=== PATIENT | female | born 1995 | race Hispanic/Latino ===

== ENCOUNTER 2020-02-04 19:13 | Emergency (ER) | payer MEDICARE, OTHER ==
[~2020-02-04] VITALS: Ht 160 cm; Wt 98.9 kg
--- OUTSIDE RECORDS SUMMARY | 2020-02-04 19:16 | XMS REPORT ---
Author Author [facility] Address Unknown Phone Unavailable Care Team Providers Care Assistant Mechanic Name Role Phone Unavailable Unavailable Payers Payer Name Policy Type Policy Number Effective Date Expiration Date Problems This patient has no known problems. Allergies, Adverse Reactions, Alerts Allergy Name Allergy Type Status Severity Reaction(s) Onset Date Inactive Date Treating Clinician Comments No Known Allergies DA Active U 2017-01-03 00:00:00 Medications This patient has no known medications. Results Test Description Test Time Test Comments Text Results Atomic Results Result Comments - DUP AB/PEL/SC COMP 2019-01-25 13:42:00 Name: JIMBO HANLEY [facility] : 1995 Age/S: 23 / F [address] [facility] Unit #: [id number] Loc: [place] [address] Phys: Luisana Weaver DO Acct: [id number] Dis Date: Status: REG ER PHONE #: [phone] Exam Date: 01/25/2019 1227 FAX #: [phone] Reason: R/O TORSION EXAMS: CPT CODE: [id number] DUP AB/PEL/SC COMP 80556 EXAM: Pelvic and transvaginal ultrasound and duplex sonography; INFORMATION: Pelvic pain, rule out ovarian torsion; TECHNIQUE AND FINDINGS: Transabdominal and transvaginal grayscale imaging was combined with color Doppler sonography and spectral analysis. The uterus is of normal size and shape; it measures 8.6 x 2.9 x 3.2 cm. Thin endometrial stripe, measuring 5 mm in thickness. No fluid collection within the endometrial canal. Both ovaries of normal size and shape and with normal flow pattern on Doppler exam. The right ovary measures 3.6 x 1.9 x 2.2 cm. The left ovary measures 3.2 x 2.6 x 2.3 cm. No free fluid within the cul-de-sac. IMPRESSION: Normal pelvic ultrasound; no evidence of ovarian torsion. at 1342 Reported and signed by: Devang Squires M.D. CC: Luisana Weaver DO; Johana Pulido M.D. Technologist: JACKSON PLATT),[facility] Date/Time: 01/25/2019 (134) Akin Orig Print D/T: S: 01/25/2019 (6193) Probe: PAGE 1 Signed Report - US TRANSVAGINAL NON OB 2019-01-25 13:42:00 Name: JIMBO HANLEY [facility] : 1995 Age/S: 23 / F [address] [facility] Unit #: [id number] Loc: [place] [address] Phys: Luisana Weaver DO Acct: [id number] Dis Date: Status: REG ER PHONE #: [phone] Exam Date: 01/25/2019 1227 FAX #: [phone] Reason: R/O TORSION EXAMS: CPT CODE: [id number] [place] [address] EXAM: Pelvic and transvaginal ultrasound and duplex sonography; INFORMATION: Pelvic pain, rule out ovarian torsion; TECHNIQUE AND FINDINGS: Transabdominal and transvaginal grayscale imaging was combined with color Doppler sonography and spectral analysis. The uterus is of normal size and shape; it measures 8.6 x 2.9 x 3.2 cm. Thin endometrial stripe, measuring 5 mm in thickness. No fluid collection within the endometrial canal. Both ovaries of normal size and shape and with normal flow pattern on Doppler exam. The right ovary measures 3.6 x 1.9 x 2.2 cm. The left ovary measures 3.2 x 2.6 x 2.3 cm. No free fluid within the cul-de-sac. IMPRESSION: Normal pelvic ultrasound; no evidence of ovarian torsion. at 1342 Reported and signed by: Devang Squires M.D. CC: Luisana Weaver DO; Johana Pulido M.D. Technologist: JACKSON PLATT(Leopoldo),RDMS [facility] Date/Time: 01/25/2019 (1342) [email or web address] Orig Print D/T: S: 01/25/2019 (1345) Probe: [id number] PAGE 1 Signed Report - US PELVIS COMPLETE 2019-01-25 13:42:00 Name: DAYANFUNMILAYO [facility] : 1995 Age/S: 23 / F [address] [facility] Unit #: [id number] Loc: [place] [address] Phys: Luisana Weaver DO Acct: [id number] Dis Date: Status: REG ER PHONE #: [phone] Exam Date: 01/25/2019 1227 FAX #: [phone] Reason: abd pain, r/o torsion EXAMS: CPT CODE: [id number] US PELVIS COMPLETE 04170 EXAM: Pelvic and transvaginal ultrasound and duplex sonography; INFORMATION: Pelvic pain, rule out ovarian torsion; TECHNIQUE AND FINDINGS: Transabdominal and transvaginal grayscale imaging was combined with color Doppler sonography and spectral analysis. The uterus is of normal size and shape; it measures 8.6 x 2.9 x 3.2 cm. Thin endometrial stripe, measuring 5 mm in thickness. No fluid collection within the endometrial canal. Both ovaries of normal size and shape and with normal flow pattern on Doppler exam. The right ovary measures 3.6 x 1.9 x 2.2 cm. The left ovary measures 3.2 x 2.6 x 2.3 cm. No free fluid within the cul-de-sac. IMPRESSION: Normal pelvic ultrasound; no evidence of ovarian torsion. at 1342 Reported and signed by: Devang Squires M.D. CC: Luisana Weaver DO; Johana Pulido M.D. Technologist: JACKSON PLATT RT(R),CHERRI [facility]nm[facility] Date/Time: 01/25/2019 (0722) JamalGRW Orig Print D/T: S: 01/25/2019 (2505) Probe: PAGE 1 Signed Report - CT MAXIFAC W/O CNT 2019-01-25 10:36:00 Name: JIMBO HANLEY [facility] : 1995 Age/S: 23 / F [address] Unit #: [id number] Loc: [place] [address] Phys: Luisana Weaver DO Acct: [id number] Dis Date: Status: REG ER PHONE #: [phone] Exam Date: 01/25/2019939 FAX #: [phone] Reason: head injury, r/o nasal bone fracture EXAMS: CPT CODE: [id number] CT MAXIFAC [place] [address] EXAM: CT of the maxillofacial structures without contrast; INFORMATION: Head injury, rule out nasal bone fracture; TECHNIQUE AND FINDINGS: CT dose reduction protocol; 2.5 mm axial scans; sagittal and coronal reconstructions. Nasal bones are intact; no evidence of fracture; Osseous contours of the orbits and paranasal sinuses are intact; zygomatic arches and mandible are intact. Minimal mucosal swelling in the right maxillary sinus; the remainder of the sinuses and mastoid air cells are well aerated. Intra and extraconal orbital compartments are intact. IMPRESSION: 1. No evidence of acute osseous trauma. 2. Minimal right maxillary sinusitis. at 1036 Reported and signed by: Devang Squires M.D. CC: Luisana Weaver DO; Johana Pulido M.D. Technologist:DOT HOOPER RT(R) CTDI: DLP: Trnscb Date/Time: 01/25/2019 (1036) JamalGRBassam Orig Print D/T: S: 01/25/2019 (1039) CTDI: DLP: PAGE 1 Signed Report BASIC METABOLIC PANEL 2019-01-25 09:50:00 SODIUM (test code=NA) 140 mmol/L 136-145 POTASSIUM (test code=K) 4.0 mmol/L 3.5-5.1 CHLORIDE (test code=CL) 111.0 mmol/L 98-107 CARBON DIOXIDE (test code=CO2) 23.0 mmol/L 21-32 ANION GAP (test code=GAP) 10.0 10-20 GLUCOSE (test code=GLU) 99 mg/dL 74-106 BLOOD UREA NITROGEN (test code=BUN) 13 mg/dL 7-18 GLOMERULAR FILTRATION RATE (test code=GFR) > 60 mL/min >=60 Estimated GFR by using Modified MDRD formula.Chronic kidney disease is defined as either kidney damageor GFR <60 mL/min/1.73 m2 for >3 months. CREATININE (test code=CREAT) 0.60 mg/dL 0.55-1.02 Note change in reference range due to change in reagent. BUN/CREATININE RATIO (test code=BUN/CREA) 20.1 10-20 CALCIUM (test code=CA) 8.9 mg/dL 8.5-10.1 HCG SERUM [id number] 09:50:00* Test Item Value Reference Range Comments HCG SERUM QUAL (test code=HCGQL) NEGATIVE NEGATIVE This HCGQL test is NOT applicable for MALE patients.Check with nurse about probable order error.If Tumor Marker Test needed, nurse should order test "HCGTU"(Test #[id number]) [id number] 09:50:00* Test Item Value Reference Range Comments TROPONIN-I (test code=TROPI) <0.015 ng/mL 0-0.045 - CT HEAD/BRAIN W/O [id number] 09:49:00 Name: JIMBO HANLEY [facility] : 1995 Age/S: 23 / F [address] [facility]: [id number] Loc: [place] [address] Phys: Felipa Castellanos REFRACTORY TECHNICIAN Acct: [id number] Dis Date: Status: REG ER PHONE #: [phone] Exam Date: 01/25/2019 0940 FAX #: [phone] Reason: syncopal episode EXAMS: CPT CODE: [id number] CT HEAD/BRAIN W/O CONT 34414 EXAM: CT of the head; INFORMATION: Syncopal episode; TECHNIQUE AND FINDINGS: CT dose reduction protocol; The ventricles are symmetric and of normal diameter; normal width of basilar cisterns and sulci; normal patel/white matter differentiation; no evidence of intra or extra-axial hemorrhage, mass lesion or midline shift. Bone windows show no abnormalities. No evidence of skull fracture. IMPRESSION: Normal CT scan of the head. at 0949 Reported and signed by: Devang Squires M.D. CC: Felipa Castellanos NP; Johana Pulido M.D. Technologist:DOT HOOPER RT(R) CTDI: DLP: Trnscb Date/Time: 01/25/2019 (0949) [email or web address] Orig Print D/T: S: 01/25/2019 (1009) CTDI: DLP: PAGE 1 Signed Report BASIC METABOLIC [id number] 09:47:00* Test Item Value Reference Range Comments SODIUM (test code=NA) 140 mmol/L 136-145 POTASSIUM (test code=K) 4.0 mmol/L 3.5-5.1 CHLORIDE (test code=CL) 111.0 mmol/L 98-107 CARBON DIOXIDE (test code=CO2) 23.0 mmol/L 21-32 ANION GAP (test code=GAP) 10.0 10-20 GLUCOSE (test code=GLU) 99 mg/dL 74-106 BLOOD UREA NITROGEN (test code=BUN) 13 mg/dL 7-18 GLOMERULAR FILTRATION RATE (test code=GFR) > 60 mL/min >=60 Estimated GFR by using Modified MDRD formula.Chronic kidney disease is defined as either kidney damageor GFR <60 mL/min/1.73 m2 for >3 months. CREATININE (test code=CREAT) 0.60 mg/dL 0.55-1.02 Note change in reference range due to change in reagent. BUN/CREATININE RATIO (test code=BUN/CREA) 20.1 10-20 CALCIUM (test code=CA) 8.9 mg/dL 8.5-10.1 HCG SERUM [id number] 09:47:00* Test Item Value Reference Range Comments HCG SERUM QUAL (test code=HCGQL) NEGATIVE [id number] 09:47:00* Test Item Value Reference Range Comments TROPONIN-I (test code=TROPI) <0.015 ng/mL 0-0.045 URINALYSIS [id number] 09:42:00* Test Item Value Reference Range Comments UA COLOR (test code=COLU) YELLOW YELLOW UA APPEARANCE (test code=APPU) SLIGHTLY CLOUDY CLEAR UA GLUCOSE DIPSTICK (test code=DGLUU) NEGATIVE mg/dL NEGATIVE UA BILIRUBIN DIPSTICK (test code=BILU) NEGATIVE mg/dL NEGATIVE UA KETONE DIPSTICK (test code=KETU) Negative mg/dL NEGATIVE UA SPECIFIC GRAVITY (test code=SGU) 1.021 1.001-1.035 UA BLOOD DIPSTICK (test code=VIKA) Negative NEGATIVE UA PH DIPSTICK (test code=BARBARA) 6.0 5.0-8.0 UA PROTEIN DIPSTICK (test code=PROU) Negative mg/dL NEGATIVE UA UROBILINIOGEN DIPSTICK (test code=URO) NEGATIVE mg/dL NEGATIVE UA NITRITE DIPSTICK (test code=REED) NEGATIVE NEGATIVE UA LEUKOCYTE ESTERASE W REFLEX (test code=LEUUR) NEGATIVE NEGATIVE UA WBC (test code=WBCU) 0-5 #/HPF 0-5 UA RBC (test code=RBCU) 0-2 #/HPF 0-5 UA EPITHELIAL CELLS (test code=EPIU) MOD per HPF FEW UA BACTERIA (test code=BACU) NONE SEEN #/HPF NONE UA MUCUS (test code=MUCU) FEW #/LPF FEW Urine Source? Clean CatchDRUGS OF ABUSE SCREEN [id number] 09:42:00* Test Item Value Reference Range Comments URN COCAINE (test code=COCAURN) NEGATIVE <300 ng/mL URN CANNABINOIDS (test code=CANNABURN) NEGATIVE <50 ng/mL URN AMPHETAMINE (test code=AMPHETURN) NEGATIVE <1000 ng/mL URN BARBITURATE (test code=BARBITURN) NEGATIVE <200 ng/mL URN BENZODIAZEPINE (test code=BENZOURN) NEGATIVE <200 ng/mL URN OPIATES (test code=OPIATURN) NEGATIVE <300 ng/mL URN PHENCYCLIDINE (PCP) (test code=PHENCURN) NEGATIVE <25 ng/mL URN METHADONE (test code=METHAURN) NEGATIVE <300 ng/mL Urine Source? Clean CatchBASIC METABOLIC [id number] 09:40:00* Test Item Value Reference Range Comments SODIUM (test code=NA) 140 mmol/L 136-145 POTASSIUM (test code=K) 4.0 mmol/L 3.5-5.1 CHLORIDE (test code=CL) 111.0 mmol/L 98-107 CARBON DIOXIDE (test code=CO2) mmol/L 21-32 ANION GAP (test code=GAP) 10-20 GLUCOSE (test code=GLU) mg/dL 74-106 BLOOD UREA NITROGEN (test code=BUN) mg/dL 7-18 GLOMERULAR FILTRATION RATE (test code=GFR) mL/min >=60 CREATININE (test code=CREAT) mg/dL 0.55-1.02 BUN/CREATININE RATIO (test code=BUN/CREA) 10-20 CALCIUM (test code=CA) mg/dL 8.5-10.1 HCG SERUM [id number] 09:40:00* Test Item Value Reference Range Comments HCG SERUM QUAL (test code=HCGQL) NEGATIVE [id number] 09:40:00* Test Item Value Reference Range Comments TROPONIN-I (test code=TROPI) ng/mL 0-0.045 CBC W/O [id number] 09:30:00* Test Item Value Reference Range Comments WHITE BLOOD CELL (test code=WBC) 8.3 K/mm3 4.5-12.5 RED BLOOD CELL (test code=RBC) 4.70 mill/mm3 3.7-5.2 HEMOGLOBIN (test code=HGB) 13.4 gram/dL 11.5-15.5 HEMATOCRIT (test code=HCT) 41.7 % 36.0-46.0 MEAN CELL VOLUME (test code=MCV) 88.7 fL 80-98 MEAN CELL HGB (test code=MCH) 28.5 picogram 27.0-33.0 MEAN CELL HGB CONCETRATION (test code=MCHC) 32.1 gram/dL 33.0-36.0 RED CELL DISTRIBUTION WIDTH (test code=RDW) 13.3 % 11.6-16.2 PLATELET COUNT (test code=PLT) 305 K/mm3 150-450 MEAN PLATELET VOLUME (test code=MPV) 10.4 fL 6.7-11.0 URINALYSIS [id number] 09:29:00* Test Item Value Reference Range Comments UA COLOR (test code=COLU) YELLOW YELLOW UA APPEARANCE (test code=APPU) SLIGHTLY CLOUDY CLEAR UA GLUCOSE DIPSTICK (test code=DGLUU) NEGATIVE mg/dL NEGATIVE UA BILIRUBIN DIPSTICK (test code=BILU) NEGATIVE mg/dL NEGATIVE UA KETONE DIPSTICK (test code=KETU) Negative mg/dL NEGATIVE UA SPECIFIC GRAVITY (test code=SGU) 1.021 1.001-1.035 UA BLOOD DIPSTICK (test code=VIKA) Negative NEGATIVE UA PH DIPSTICK (test code=BARBARA) 6.0 5.0-8.0 UA PROTEIN DIPSTICK (test code=PROU) Negative mg/dL NEGATIVE UA UROBILINIOGEN DIPSTICK (test code=URO) NEGATIVE mg/dL NEGATIVE UA NITRITE DIPSTICK (test code=REED) NEGATIVE NEGATIVE UA LEUKOCYTE ESTERASE W REFLEX (test code=LEUUR) NEGATIVE NEGATIVE UA WBC (test code=WBCU) 0-5 #/HPF 0-5 UA RBC (test code=RBCU) 0-2 #/HPF 0-5 UA EPITHELIAL CELLS (test code=EPIU) MOD per HPF FEW UA BACTERIA (test code=BACU) NONE SEEN #/HPF NONE UA MUCUS (test code=MUCU) FEW #/LPF FEW Urine Source? Clean CatchDRUGS OF ABUSE SCREEN [id number] 09:29:00* Test Item Value Reference Range Comments URN COCAINE (test code=COCAURN) <300 ng/mL URN CANNABINOIDS (test code=CANNABURN) <50 ng/mL URN AMPHETAMINE (test code=AMPHETURN) <1000 ng/mL URN BARBITURATE (test code=BARBITURN) <200 ng/mL URN BENZODIAZEPINE (test code=BENZOURN) <200 ng/mL URN OPIATES (test code=OPIATURN) <300 ng/mL URN PHENCYCLIDINE (PCP) (test code=PHENCURN) <25 ng/mL URN METHADONE (test code=METHAURN) <300 ng/mL Urine Source? Clean CatchCBC W/O [id number] 09:28:00* Test Item Value Reference Range Comments WHITE BLOOD CELL (test code=WBC) K/mm3 4.5-12.5 RED BLOOD CELL (test code=RBC) mill/mm3 3.7-5.2 HEMOGLOBIN (test code=HGB) 13.4 gram/dL 11.5-15.5 HEMATOCRIT (test code=HCT) 41.7 % 36.0-46.0 MEAN CELL VOLUME (test code=MCV) fL 80-98 MEAN CELL HGB (test code=MCH) picogram 27.0-33.0 MEAN CELL HGB CONCETRATION (test code=MCHC) gram/dL 33.0-36.0 RED CELL DISTRIBUTION WIDTH (test code=RDW) % 11.6-16.2 PLATELET COUNT (test code=PLT) K/mm3 150-450 MEAN PLATELET VOLUME (test code=MPV) fL 6.7-11.0 TROPONIN I [id number] 09:05:00* Test Item Value Reference Range Comments TROPONIN I RAPID (test code=TROPIRAP) 0.00 ng/mL <0.08 Please Note New Reference Range 0.00-0.079 ng/mL - Negative>or=0.08 ng/mL - Positive The use of serial sampling and testing protocol is arecommended practice.An elevated troponin level alone is often not sufficient fordiagnosis of myocardial infarction. Troponin results obtained by different assays may vary.Evaluation of the extent of myocardial damage based onincrease of troponin would be valid only if similarmethodology is used.
--- NOTE | 2020-02-04 20:07 | Diagnostic Imaging Report ---
Foot complete CPT code: 52814 Indication: ^pain at the dorsum of the foot ^[id number] ^1951 Technique: A.P., oblique and lateral views of the right foot obtained. Comparison: None Findings: Calcaneus is intact and normal in morphology. The midfoot is intact. No evidence of displaced fracture or dislocation involving any of the digits. No radiopaque foreign bodies in the soft tissues. IMPRESSION: No acute traumatic pathology. Signed by: Dr. Mahi Malik MD on 02/04/2020 8:04 PM
== END 2020-02-04 20:45 | disposition home or self-care (01) ==
LOC: FSED 19:13
DX: S93.621A Sprain of tarsometatarsal ligament of right foot, initial encounter (principal); Y93.66 Activity, soccer; Y92.830 Public park as the place of occurrence of the external cause
CPT/HCPCS: 99283